=== PATIENT | female | born 1985 | race African-American/Black ===

== ENCOUNTER 2025-03-29 13:45 | Emergency (ER) | payer SELFPAY ==
[~2025-03-29] VITALS: Ht 157.5 cm; Wt 70.0 kg
[2025-03-29 13:52] VITALS: BP 106/86; PULSE 110; RESP 18; TEMP 36.8; O2SAT 99
[2025-03-29 16:10] LABS: BASOPHILS % 0.8 % (0.0-2.0); EOSINOPHILS % 0.2 % (0.0-5.0); HEMATOCRIT. 30.6 % (36.0-48.0); HEMOGLOBIN. 9.4 g/dL (12.0-16.0); LYMPHOCYTES % 8.2 % (20.0-50.0); MEAN PLATELET VOLUME 6.9 fl (7.4-10.4); MONOCYTES % 8.7 % (2.0-8.0); NEUTROPHILS % 82.1 % (40.0-76.0); PLATELET 328 x1000/uL (130-400); RED BLOOD CELL COUNT 4.25 mill/uL (4.2-5.4); RED CELL DISTRIBUTION WIDTH 19.1 % (11.6-14.6)
[2025-03-29 16:18] LABS: CREATININE 0.8 mg/dL (0.6-1.0)
[2025-03-29 16:19] LABS: UREA NITROGEN BLOOD 7 mg/dL (9-23)
[2025-03-29 16:20] LABS: ASPARTATE AMINOTRANSFERASE 15 IU/L (<34)
[2025-03-29 16:21] LABS: BILIRUBIN DIRECT 0.2 mg/dL (<=3.0); BILIRUBIN TOTAL 0.5 mg/dL (0.1-1.0); PROTEIN TOTAL 8.4 g/dL (6.0-8.3)
[2025-03-29 16:26] LABS: INR 1.0
[2025-03-29 16:31] LABS: HCG SCREEN NEGATIVE
== END 2025-03-29 17:06 | disposition home or self-care (01) ==
LOC: ER 14:22
DX: S40.022A Contusion of left upper arm, initial encounter (principal); S40.012A Contusion of left shoulder, initial encounter; S20.229A Contusion of unspecified back wall of thorax, initial encounter; Z79.899 Other long term (current) drug therapy; Y09 Assault by unspecified means; Y92.009 Unspecified place in unspecified non-institutional (private) residence as the place of occurrence of the external cause; Y93.89 Activity, other specified; Y99.8 Other external cause status
CPT/HCPCS: 36415; 80048; 80076; 83735; 84703; 85025; 99283